=== PATIENT | female | born 1955 | race Caucasian/White ===

== ENCOUNTER 2019-09-08 15:38 | Emergency (ER) | payer OTHER ==
[~2019-09-08] VITALS: Ht 165.1 cm; Wt 71.7 kg
[2019-09-08 16:34] LABS: ABSOLUTE NEUTROPHILS 4.2 thou/uL (1.4-8.2); BASOPHILS 0.7 % (0.0-2.0); EOSINOPHILS 1.2 % (0.0-3.0); HEMATOCRIT 46.5 % (37.0-47.0); HEMOGLOBIN 15.6 gm/dL (12.0-15.0); LYMPHOCYTES 23.7 % (24.0-44.0); MCHC 33.6 g/dL (28.0-37.0); MCV 92.5 fL (80.0-100.0); MONOCYTES 5.6 % (1.0-8.0); PLATELET COUNT 219 thou/uL (150-400); POLYS 68.8 % (36.0-66.0); RBC 5.03 mil/uL (4.20-5.00); RDW 13.2 % (10.5-14.5); WBC 6.1 thou/uL (4.0-11.0)
[2019-09-08 16:43] LABS: ANION GAP 6 mmol/L (7-16); BUN 9 mg/dL (7-18); CALCIUM 9.8 mg/dL (8.5-10.1); CHLORIDE 104 mmol/L (98-107); CO2 29 mmol/L (21-32); CREATININE 0.7 mg/dL (0.6-1.0); GLUCOSE 96 mg/dL (74-106); POTASSIUM 4.3 mmol/L (3.5-5.1); SODIUM 139 mmol/L (136-145)
[2019-09-08 16:53] LABS: ALBUMIN 4.2 g/dL (3.4-5.0); SGOT 24 U/L (15-37); SGPT 47 U/L (30-65); TOTAL BILIRUBIN 0.7 mg/dL (<0.1-1.0); TOTAL PROTEIN 7.8 g/dL (6.4-8.2); TROPONIN-I <0.06 ng/mL (<0.06)
[2019-09-08] MEDS ORDERED: ZPAK PO (17:25)
[2019-09-08] MEDS ORDERED: XOPENEX HFA15 GM INH (17:25)
[2019-09-08 17:33] VITALS: BP 138/74
--- NOTE | 2019-09-08 23:29 | EKG ---
[facility] [place] [address] ELECTROCARDIOGRAM REPORT Name: KENDRA JOHNSTON Room #: [facility].#: [id number] Admission: 09/08/19 Attend Phys: Discharge: 09/08/19 Date of : 51 Report #: [id number] THIS REPORT FOR: cc: Prakash Torres MD, Jorge A. MD Couchonnal, Luis F. MD ~ THIS REPORT FOR: //name// [facility] ED Test Date: 2019-09-08 Test Time: 16:05:47 Pat Name: KENDRA JOHNSTON Department: Room: Gender: F Lead Blender: sharad : 1955 Requested By: Sonia Levin Order Number: [id number] MD: Marco Carroll Measurements Intervals [place] Rate: 66 P: 55 IA: 146 QRS: -62 QRSD: 105 T: 35 QT: 416 QTc: 436 Interpretive Statements Sinus rhythm Probable left atrial enlargement LAD, consider left anterior fascicular block No previous ECG available for comparison Electronically Signed On 09-08-2019 23:27:44 CDT by Marco Carroll [email or web address] <ELECTRONICALLY SIGNED> By: Marco Carroll MD 09/08/19 2327 [id number] Marco Carroll MD /EPI
== END 2019-09-08 17:34 | disposition home or self-care (01) ==
LOC: ER 15:38
PROVIDERS: Emergency Medicine Emergency Medical Services
DX: J06.9 Acute upper respiratory infection, unspecified (principal); R07.89 Other chest pain; Z20.828 Contact with and (suspected) exposure to other viral communicable diseases; Z88.2 Allergy status to sulfonamides

== ENCOUNTER → 2020-07-05 | Outpatient (CLI) | payer OTHER ==
[~2020-07-05] MED LIST: XOPENEX HFA15 GM INH; ZPAK PO
== END ==
LOC: LAB 10:29
PROVIDERS: ATTEND Specialist
DX: Z01.812 Encounter for preprocedural laboratory examination (principal); Z20.822 Contact with and (suspected) exposure to COVID-19

== ENCOUNTER → 2020-07-09 | Outpatient (CLI) | payer OTHER ==
[~2020-07-09] VITALS: Ht 165.1 cm; Wt 68.0 kg
[~2020-07-09] MED LIST changes: +COSOPT OCUMETER10 ML OPHTHALMIC; +LIPITOR 20 MG T20 M1 PO; +ZETIA10 MG PO
--- NOTE | 2020-07-09 11:34 | P ---
[facility] [place] [place] [address] PROCEDURE REPORT Name: KENDRA JOHNSTON Room #: REG [facility].#: [id number] Admission: 07/09/20 Attend Phys: Chidi Mckeon Discharge: Date of : 51 Report #: [id number] THIS REPORT FOR: cc: FAM - No family physician/PCP FAM - No family physician/PCP Chidi Cortes MD ~ DATE OF SERVICE: 07/09/2020 PROCEDURE PERFORMED: Colonoscopy. HISTORY OF PRESENT ILLNESS: The patient is a 65-year-old female who reports intermittent bright red blood per rectum. Last colonoscopy was greater than 20 years ago. She does report some mild constipation at times. No family history of colon cancer. DESCRIPTION OF PROCEDURE: The risks and benefits of the procedure were explained to the patient, those risks including but not limited to bleeding, perforation and the risk of sedation. She understood these risks and gave informed consent. Sedation was given using propofol per anesthesia. Next, a digital rectal exam showed medium to large external hemorrhoids, nonbleeding, otherwise normal. Next, using an Olympus colonoscope, the scope was placed in the patient's anus and advanced under direct vision to the cecum. The overall prep was good. The cecum and ileocecal valve were normal in appearance. Ascending, transverse and descending colon were normal. A few small scattered diverticula were noted in the sigmoid colon, no evidence of inflammation, otherwise normal. The rectal mucosa was normal. On retroflexion, small nonbleeding internal hemorrhoids were noted. Again, external medium sized to large external hemorrhoids noted. No evidence of bleeding on exam today. The scope was then withdrawn and the procedure terminated. The patient tolerated the procedure well. IMPRESSION: 1. Sigmoid diverticulosis. 2. Internal and external hemorrhoids. 3. Otherwise, normal colonoscopy. RECOMMENDATIONS: 1. Intermittent bright red blood per rectum, likely secondary to hemorrhoids. Recommend high fiber diet, Analpram on a p.r.n. basis. 2. Repeat colonoscopy in 10 years. [facility] [address] [place] [address] PROCEDURE REPORT Name: KENDRA JOHNSTON Room #: REG [facility] Ellen.#: [id number] Admission: 07/09/20 Attend Phys: Chidi Mckeon Discharge: Date of : 51 Report #: [id number] Thank you for allowing me to participate in her care. <ELECTRONICALLY SIGNED> By: Chidi Cortes MD 07/09/20 1134 [id number] Chidi Cortes MD /nt
== END | disposition home or self-care (01) ==
LOC: GI 08:35
PROVIDERS: ATTEND Specialist
DX: K62.5 Hemorrhage of anus and rectum (principal); K59.00 Constipation, unspecified; K57.30 Diverticulosis of large intestine without perforation or abscess without bleeding; K64.8 Other hemorrhoids; K64.4 Residual hemorrhoidal skin tags; E78.5 Hyperlipidemia, unspecified; F17.210 Nicotine dependence, cigarettes, uncomplicated; H40.9 Unspecified glaucoma; Z98.890 Other specified postprocedural states; Z79.899 Other long term (current) drug therapy; Z90.710 Acquired absence of both cervix and uterus; Z98.41 Cataract extraction status, right eye; Z98.42 Cataract extraction status, left eye; Z88.2 Allergy status to sulfonamides
CPT/HCPCS: 62110; 62900

== ENCOUNTER → 2020-08-04 | Outpatient (CLI) | payer OTHER | LOC: LAB 11:18 | PROVIDERS: ATTEND Specialist | DX: Z01.812 Encounter for preprocedural laboratory examination (principal); Z20.822 Contact with and (suspected) exposure to COVID-19 ==

== ENCOUNTER → 2020-08-06 | Outpatient (CLI) | payer OTHER ==
[~2020-08-06] VITALS: Ht 167.6 cm; Wt 68.0 kg
--- NOTE | 2020-08-09 12:50 | P ---
[facility] [place] [address] [place] [address] PROCEDURE REPORT Name: KENDRA JOHNSTON Room #: REG [facility]#: [id number] Admission: 08/06/20 Attend Phys: Chidi Mckeon Discharge: Date of : 51 Report #: [id number] THIS REPORT FOR: cc: Prakash Torres MD, Jorge A. MD McElhinney, Christian C. MD ~ DATE OF SERVICE: 08/06/2020 PROCEDURE PERFORMED: Upper endoscopy. HISTORY OF PRESENT ILLNESS: The patient is a 65-year-old female with intermittent heartburn symptoms, dark stools at times was on aspirin in the past, but it has been off this for quite some time. She does report intermittent dysphagia as well. Denies any emesis. She underwent a colonoscopy by myself on 06/28/2020, which showed sigmoid diverticulosis, internal and external hemorrhoids. This was for a bright red blood per rectum. Otherwise, was normal. Plan is for upper endoscopy. DESCRIPTION OF PROCEDURE: The risks and benefits of the procedure were explained to the patient, those risks including but not limited to bleeding, perforation and the risk of sedation. She understood these risks and gave informed consent. Sedation was given using propofol per anesthesia. Next, using a standard Olympus upper endoscope, the scope was placed in the patient's mouth and advanced under direct vision through the esophagus, stomach and into the second portion of the duodenum. The larynx was normal in appearance. The upper and mid esophagus was normal. In the distal esophagus, grade A erosive esophagitis was noted. No evidence of bleeding. Overall, the gastric mucosa was normal. The pylorus was normal and patent. The duodenal bulb, first and second portion were all normal. The scope was then brought back up into the patient's stomach and a Savary guidewire was inserted through the scope, leaving the guidewire in place as the scope was then withdrawn. Next, a 48-Sami Savary dilation of the esophagus was then performed without difficulty. The wire and dilator removed. The scope was reintroduced into the patient's stomach. A small mucosal tear was noted in the proximal esophagus. No evidence of bleeding. The scope was then withdrawn and the procedure terminated. The patient tolerated the procedure well. IMPRESSION: 1. Grade A erosive esophagitis. 2. Otherwise, normal upper endoscopy. RECOMMENDATIONS: 1. Would recommend daily PPI therapy. 2. Observe the patient post-dilation. 3. If patient has continued dark stools, consider hemoccult testing of stools [address] [address] PROCEDURE REPORT Name: KENDRA JOHNSTON Room #: REG [facility]#: [id number] Admission: 08/06/20 Attend Phys: Chidi Mckeon Discharge: Date of : 51 Report #: [id number] at that time. Thank you for allowing me to participate in her care. <ELECTRONICALLY SIGNED> By: Chidi Cortes MD 08/09/20 1250 [id number] Chidi Cortes MD /nt
== END | disposition home or self-care (01) ==
LOC: GI 08:44
PROVIDERS: ATTEND Specialist
DX: R12 Heartburn (principal); R13.10 Dysphagia, unspecified; K22.10 Ulcer of esophagus without bleeding; E78.5 Hyperlipidemia, unspecified; H40.9 Unspecified glaucoma; Z98.890 Other specified postprocedural states; Z79.899 Other long term (current) drug therapy; Z87.891 Personal history of nicotine dependence; Z87.442 Personal history of urinary calculi; Z90.710 Acquired absence of both cervix and uterus; Z88.2 Allergy status to sulfonamides
CPT/HCPCS: 62110; 62900

== ENCOUNTER → 2020-08-19 | Outpatient (CLI) | payer OTHER | LOC: ULTRA 08:40 | PROVIDERS: ATTEND Specialist | DX: N28.1 Cyst of kidney, acquired (principal) ==

== ENCOUNTER → 2021-01-20 | Outpatient (CLI) | payer OTHER ==
[2021-01-20 12:18] LABS: ABSOLUTE NEUTROPHILS 2.1 thou/uL (1.4-8.2); BASOPHILS 0.7 % (0.0-2.0); EOSINOPHILS 2.4 % (0.0-3.0); HEMATOCRIT 45.1 % (37.0-47.0); LYMPHOCYTES 33.7 % (24.0-44.0); MCH 31.2 pg (26.0-34.0); MCHC 33.3 g/dL (28.0-37.0); MCV 93.6 fL (80.0-100.0); MONOCYTES 9.3 % (1.0-8.0); PLATELET COUNT 225 thou/uL (150-400); POLYS 53.9 % (36.0-66.0); RBC 4.82 mil/uL (4.20-5.00); RDW 13.4 % (10.5-14.5); WBC 3.9 thou/uL (4.0-11.0)
[2021-01-20 12:46] LABS: ALBUMIN 3.9 g/dL (3.4-5.0); ANION GAP 8 mmol/L (7-16); BUN 20 mg/dL (7-18); CALCIUM 9.1 mg/dL (8.5-10.1); CHLORIDE 107 mmol/L (98-107); CHOLESTEROL 232 mg/dL (<200); CO2 30 mmol/L (21-32); CREATININE 0.7 mg/dL (0.6-1.0); GLUCOSE 97 mg/dL (74-106); HDL CHOLESTEROL 57 mg/dL (>40); LDL CHOLESTEROL 155 mg/dL (<100); MAGNESIUM 2.2 mg/dL (1.8-2.4); POTASSIUM 4.5 mmol/L (3.5-5.1); SGOT 13 U/L (15-37); SGPT 24 U/L (30-65); SODIUM 145 mmol/L (136-145); TC:HDL 4.1 Ratio (Not establshd); TOTAL BILIRUBIN 0.3 mg/dL (0.2-1.0); TOTAL PROTEIN 7.4 g/dL (6.4-8.2); TRIGLYCERIDE 102 mg/dL (<150); VLDL 20 mg/dL (<40)
== END ==
LOC: LAB 11:29
PROVIDERS: ATTEND Internal Medicine
DX: E78.5 Hyperlipidemia, unspecified (principal); R53.83 Other fatigue

== ENCOUNTER → 2021-04-04 | Outpatient (CLI) | payer OTHER | LOC: RAD 13:23 | PROVIDERS: ATTEND Internal Medicine | DX: M54.50 Low back pain, unspecified (principal) ==